=== PATIENT | female | born 1960 | race Caucasian/White ===

== ENCOUNTER 2017-08-12 07:11 | Emergency (ER) | payer BC ==
[~2017-08-12] VITALS: Ht 167.6 cm; Wt 70.0 kg
[2017-08-12] MEDS ORDERED: ondansetron/PF 4mg/2ml inj IV ONE (07:55)
[2017-08-12] MEDS ORDERED: famotidine/PF 10 mg/ml inj IV ONE (07:55)
[2017-08-12] MEDS ORDERED: normal saline 1000ML IV soln IVB ONE (07:55)
[2017-08-12] MEDS ORDERED: morphine 4 MG/ML inj SYRINge IV ONE (07:55)
[2017-08-12 08:11] LABS: BASOPHILS % (AUTO) 0.2 % (0-1); EOSINOPHILS # (AUTO) 0.1 X10'3 (0-0.9); EOSINOPHILS % (AUTO) 1.4 % (0-6); HEMATOCRIT 40.6 % (35.0-45.0); HEMOGLOBIN 14.4 g/dl (12.0-16.0); LYMPHOCYTES # (AUTO) 0.9 X10'3 (1.1-4.8); LYMPHOCYTES % (AUTO) 11.7 % (21-51); MEAN CORPUSCULAR HEMOGLOBIN 33.2 PG (27.0-31.0); MEAN CORPUSCULAR HGB CONC 35.5 % (33.0-36.5); MEAN CORPUSCULAR VOLUME 93.5 FL (78-98); MEAN PLATELET VOLUME 9.6 FL (7.4-10.4); MONOCYTES # (AUTO) 0.5 X10'3 (0-0.9); MONOCYTES % (AUTO) 7.4 % (2-12); NEUTROPHILS # (AUTO) 5.9 X10'3 (1.8-7.7); NEUTROPHILS % (AUTO) 79.3 % (42-75); PLATELET COUNT 159 X10'3 (140-440); RED BLOOD COUNT 4.34 X10'6 (4.20-5.60); RED CELL DISTRIBUTION WIDTH 12.9 % (11.5-14.5); WHITE BLOOD COUNT 7.4 X10'3 (4.5-11.0)
[2017-08-12 08:20] LABS: ALANINE AMINOTRANSFERASE 37 U/L (12-78); ALBUMIN 3.7 G/DL (3.4-5.0); ALBUMIN/GLOBULIN RATIO 1.1 (1.1-1.5); ALKALINE PHOSPHATASE 83 IU/L (46-116); ANION GAP 11 (8-16); ASPARTATE AMINO TRANSFERASE 31 U/L (10-37); BILIRUBIN,TOTAL 0.3 MG/DL (0.1-1.0); BLOOD UREA NITROGEN 18 MG/DL (7-18); BUN/CREATININE RATIO 16.7 (6.6-38.0); CALCIUM 9.6 MG/DL (8.5-10.1); CHLORIDE 105 MMOL/L (99-107); CREATININE 1.08 MG/DL (0.40-0.90); GLUCOSE 128 MG/DL (70-104); LIPASE 330 U/L (73-393); POTASSIUM 4.2 MMOL/L (3.5-5.1); SODIUM 140 MMOL/L (135-145); TOTAL CARBON DIOXIDE 24.2 MMOL/L (24-32); TOTAL PROTEIN 7.2 G/DL (6.4-8.2); eGFR 52 ML/MIN
[2017-08-12 09:03] LABS: CLARITY,URINE TURBID (Clear); COLOR,URINE YELLOW (Yellow); GLUCOSE, URINE NEGATIVE (Neg); KETONES,URINE NEGATIVE (Neg); LEUKOCYTE ESTERASE ,URINE NEGATIVE (Neg); NITRITES, URINE NEGATIVE (Neg); OCCULT BLOOD,URINE NEGATIVE (Neg); PH,URINE 8.5 (4.8-8.0); PROTEIN,URINE TRACE mg/dl (Neg); UROBILINOGEN,URINE 0.2 E.U/dL (0.2-1.0)
[2017-08-12 09:06] LABS: UA COLLECTION TYPE CLN CATCH MIDSTREAM
[2017-08-12 09:17] LABS: AMORPHOUS PHOSPHATES 4+; SQUAMOUS EPITHELIAL CELL,UR FEW /LPF (FEW)
[2017-08-12 09:18] LABS: BACTERIA,URINE NONE SEEN /HPF (Neg); RBC,URINE 0-2 /HPF (0-2); WBC,URINE NONE SEEN /HPF (0-4)
[2017-08-12] MEDS ORDERED: PANT-47 PO (10:09)
[2017-08-12 10:46] VITALS: BP 110/63
== END 2017-08-12 10:48 | disposition home or self-care (01) ==
LOC: ER 07:12
DX: R10.13 Epigastric pain (principal); R11.2 Nausea with vomiting, unspecified; Z98.890 Other specified postprocedural states; Z79.899 Other long term (current) drug therapy
CPT/HCPCS: 36415; 74022; 80053; 81001; 83690; 85025; 93005; 96361; 96374; 96375; 99285; J2270; J2405; J3490; J7030

== ENCOUNTER 2024-07-15 11:47 | Day surgery (SDC) | payer OTHER ==
[2024-07-15] VITALS (13 sets, daily range): BP systolic 117–149; BP diastolic 60–83; PULSE 55–79; RESP 13–17; TEMP 97.3–98.5; O2SAT 95–100
[~2024-07-15] VITALS: Ht 170.2 cm; Wt 66.3 kg
[2024-07-15] MEDS: ceFAZolin 2gm/dext,iso 50mL 50 ML IV ONE (05:30)
[~2024-07-15 11:47] MED LIST: NO HOME MEDS
--- NOTE | 2024-07-15 12:47 | ELECTROCARDIOGRAPH REPORT ---
[facility] Test Date: 2024-07-15 Test Time: 12:43:56 Pat Name: LALY MEZA Department: [facility] Patient ID: [id number] Room: Gender: F Data Compiler: JOSEE : 1960 Requested By: LISBET GREEN Order Number: [id number] Reading MD: Dr. FINA Javier Measurements Intervals [place] Rate: 56 P: 65 MI: 165 QRS: 53 QRSD: 82 T: 27 QT: 431 QTc: 416 Interpretive Statements Sinus bradycardia Electronically Signed On 07-15-2024 17:19:[address] FINA Javier Please click the below link to view image of tracing.
[2024-07-15] MEDS: VANCOMYCIN 1GM 200ML H20 (PEG) 200 ML IV ONE (13:13)
[2024-07-15] MEDS: famotidine 20mg tablet PO ONE (13:14)
[2024-07-15] MEDS: ringers solution, lacted 1,000 ML IV SCH (13:14)
[2024-07-15 13:17] LABS: BASOPHILS % (AUTO) 0.7 % (0-1); EOSINOPHILS # (AUTO) 0.1 X10'3 (0-0.9); EOSINOPHILS % (AUTO) 2.1 % (0-6); MEAN CORPUSCULAR HEMOGLOBIN 31.3 PG (27.0-31.0); MEAN CORPUSCULAR HGB CONC 34.1 g/dL (33.0-36.5); MEAN CORPUSCULAR VOLUME 91.8 FL (78-98); MEAN PLATELET VOLUME 9.1 FL (7.4-10.4); MONOCYTES # (AUTO) 0.5 X10'3 (0-0.9); MONOCYTES % (AUTO) 8.7 % (2-12); NEUTROPHILS # (AUTO) 3.9 X10'3 (1.8-7.7); NEUTROPHILS % (AUTO) 70.5 % (42-75); PRE OP HEMOGLOBIN 15.7 g/dL (12.0-16.0); PRE OP PLATELET COUNT 192 X10'3 (140-440); PRE OP WHITE BLOOD COUNT 5.5 10'3 (4.8-10.8); RED BLOOD COUNT 5.01 X10'6 (4.20-5.60); RED CELL DISTRIBUTION WIDTH 13.2 % (11.5-14.5)
[2024-07-15 13:40] LABS: ALBUMIN 3.9 G/DL (3.4-5.0); ALKALINE PHOSPHATASE 124 IU/L (46-116); BLOOD UREA NITROGEN 17 MG/DL (7-18); BUN/CREATININE RATIO 18.7 (10.0-20.0); CALCIUM 9.3 MG/DL (8.5-10.1); CHLORIDE 103 MMOL/L (99-107); CREATININE 0.91 MG/DL (0.40-0.90); PRE OP ALT 25 U/L (30-65); PRE OP ANION GAP 8 (8-16); PRE OP AST 25 U/L (10-37); PRE OP BILIRUB, TOTAL 0.6 MG/DL (0.0-1.0); PRE OP GLUCOSE 84 MG/DL (70-104); PRE OP POTASSIUM 3.5 MMOL/L (3.4-5.1); PRE OP SODIUM 138 MMOL/L (135-145); TOTAL CARBON DIOXIDE 27.1 MMOL/L (24-32); TOTAL PROTEIN 7.8 G/DL (6.4-8.2); eCRCL 60 ML/MIN; eGFR 62 ML/MIN
[2024-07-15] MEDS ORDERED: fentaNYL/PF 50MCG/1 ML 2ML syringe ONE (17:57)
[2024-07-15] MEDS ORDERED: midazolam 1 mg/ML 2ml injection ONE (17:57)
[2024-07-15] MEDS ORDERED: propofol inj 20 ML IV ONE (18:01)
[2024-07-15] MEDS ORDERED: dexamethasone sod phosphate 4mg/ml inj. ONE (18:17)
[2024-07-15] MEDS ORDERED: ROPIVAcaine 0.5% (5mg/ml) 30ml vial ONE (18:17)
[2024-07-15] MEDS ORDERED: ondansetron/PF 4mg/2ml inj ONE (18:17)
[2024-07-15] MEDS ORDERED: sevoflurane 250ml liquid IH ONE (18:30)
[2024-07-15] MEDS ORDERED: morphine 10mg/ml inj. ONE (18:32)
[2024-07-15] MEDS ORDERED: bacitracin 15gm ointment TP ONE (18:39)
[2024-07-15] MEDS ORDERED: ringers solution, lacted 1,000 ML IV SCH (18:45)
[2024-07-15] MEDS ORDERED: enalaprilat 1.25mg/ml 2ml vial IV PRN (18:45)
[2024-07-15] MEDS ORDERED: meperidine/PF 25mg/ml syringe IV PRN ×3 (18:45)
[2024-07-15] MEDS ORDERED: ondansetron/PF 4mg/2ml inj IV PRN ×2 (18:45→20:35)
[2024-07-15] MEDS ORDERED: proCHLORperazine 10 MG/2 ml inj IV PRN (18:45)
[2024-07-15] MEDS ORDERED: morphine 2 MG/ML inj. syringe IV PRN (18:45)
[2024-07-15] MEDS ORDERED: labetalol 20mg/4ml (5mg/ml) syringe IV PRN (18:45)
--- NOTE | 2024-07-15 18:47 | ANESTHESIA RECORDS ---
Nerve Block Providers to CC ~ Diagnosis: Nerve Block requested by: LISBET GREEN MD Neuraxial/Peripheral Nerve Block requested for Post-operative analgesia by Physician above DIAGNOSIS: Post-operative pain. (Body Area) Shoulder: [ ] Arm: [ ] Hand: [ ] Hip: [ ] Knee: [ ] Ankle: [ ] Foot: [ ] Leg: [ ] Abdomen: [ ] Other: [ ] Post-operative pain expected to be/is inadequately managed by oral or IV medicines. Regional anesthetic expected to facilitate rehabilitation and/or discharge from facility. Other:[ ] Procedure Performed: Femoral / Saphenous: Left Time out Done?: Yes Time of Time out: 18:05 Procedure Details: PROCEDURE DETAILS: Risks, benefits and alternatives explained Informed consent obtained, and patient wishes to proceed Conscious sedation with indicated monitors Patient positioned, pertinent anatomy defined, sterile technique used Needle used: [ ] 3 1/8 inch Stimuplex Ultra 22ga [x ] 4 inch Stimuplex Ultra 20ga [ ] 6 inch Stimuplex Ultra 20ga [ ] 6 inch, Quikbloc over the needle catheter set 20ga [ ] 4 inch Quikbloc over the needle catheter set 20ga [ ]Other: [ ] Loss of twitch @ [___0.4 ]mA [ x] Single Injection [ ] Catheter Ultrasound Guidance Used: [x ] Yes [ ] No Attempts:[ once ] Medicines injected: [ ]Clonidine Amt:[ ] [x ]Dexamethasone Amt:[__3 mgs ] [x ]Ropivacaine Amt:[ 0.5% 25 cc ] [ ]Bupivacaine Amt:[ ] [ ]Lidocaine Amt:[ ] [ ]Exparel 1.33%:[ ] [ ]Epinephrine Amt[ ] [ ]Other: [ ] Intermittent aspiration during local anesthetic administration No symptoms of intraneural or intravenous injection Patient tolerated procedure well Comments Left Femoral nerve block: . Pt supine. Easy visualization of the Femoral nerve and Femoral vessels with ultrasound probe below the groin. Needle entered from lateral approach. 1% xylocaine local anesthetic. Patellear twitch noted. twitch disappeared at 04 mv. No Pain or discomfort during injection. NAI MONTOYA MD July 15, 2024 18:47
[2024-07-15] MEDS ORDERED: bisacodyl 10mg suppository rectal RC PRN (20:35)
[2024-07-15] MEDS ORDERED: PCA WASTE DOCUMENTATION 1 MG ML MC SCH (20:35)
[2024-07-15] MEDS ORDERED: HYDROmorphone 1 mg/ml syringe IV PRN (20:35)
[2024-07-15] MEDS ORDERED: diphenhydrAMINE 25mg capsule PO PRN ×2 (20:35)
[2024-07-15] MEDS ORDERED: naloxone 0.4 mg/ml inj IV PRN (20:35)
[2024-07-15] MEDS ORDERED: magnesium hydroxide 30ml (MOM) UD suspension PO PRN (20:35)
[2024-07-15] MEDS ORDERED: acetaminophen 325mg tablet PO PRN (20:35)
[2024-07-15] MEDS ORDERED: HYDROmorphone inj. 0.5 MG/0.5 ML DISP.SYRIN IV PRN (20:35)
[2024-07-15] MEDS ORDERED: oxyCODONE IR 5mg (immed. release) tablet PO PRN ×2 (20:35)
--- NOTE | 2024-07-15 20:45 | OPERATIVE REPORT ---
Operative Report Providers to ~ Date of Procedure: July 15, 2024 Pre-Operative Diagnosis: Patella fracture left knee closed Post-Operative Diagnosis SAME as PRE-Op Procedure Performed Partial patellectomy repair of extensor mechanism Surgeon: Lisbet Green MD Guide Domestic Tour One Anesthesiologist: Cameron South Type of Anesthesia: General, Other (Femoral nerve block adductor canal block) Findings: Patient was found to have a less than 1/3 patellar fracture involving the inferior pole of the patella. This was comminuted 2nd requiring partial patellectomy of this inferior portion Complications None Estimated Blood Loss: 100 cc Specimen Removed: Inferior 20% of the patella inferior pole Description of Procedure: This patient was taken to the operating room to attempted potential open repair of a patella fracture that was approximately 6-week-old. Patient was informed of the indications risks benefits limitations and potential complications of the surgery. The attempt is to be able to stabilize this fracture and preserve as much articular cartilage as possible and joint surfaces as possible. I obtained informed consent. I signed her extremity. She was given prophylactic antibiotics per protocol. Taken to the operating room and given a general anesthetic as well as a femoral nerve block and adductor canal block for postoperative pain management her right leg was placed in an SCD with the left leg was placed in a well-padded operative thigh tourniquet surgical time-out was taken protocol and the case was begun Esmarch was used for exsanguination of the leg of the prepped and draped in usual sterile orthopaedic fashion Esmarch was used. Tourniquet was insufflated anterior incision was made from the inferior pole of the patella the of the superior pole of the patella and then extending to the tibial tubercle and into the quadricep tendon proximal this is a anterior vertical incision. Dissection was then carried medial and lateral the expose the fracture site. Extensive debridement was required to expose the fracture fragments. The inferior pole which was less than 1/3 of the patella was surface area was comminuted and had displaced and had disrupted its anterior cortical margin. With a loss of cortical integrity a repair was not feasible therefore a partial patellectomy this begun. I retained the portion of the inferior pole of the patella was attached to the to the patellar tendon for suture repair to the superior 2/3 of the patella. I used FiberTape in a [id number] fashion to achieved with the apparent supported by interrupted sutures of FiberTape both medial and lateral to achieve an anatomic repair and judaism of the extensor mechanism 0 Vicryl was also used to supplement this. X-rays confirmed acceptable alignment of the patella postoperatively. The knee was stable otherwise. Subcuticular skin was closed with 2-0 Vicryl. Skin was closed with skin monica. No drains were acquired. Antibiotic ointment was applied to the incision sterile 4x4s held in position with a Kerlix and Ankit wrap and then the knee was placed in a knee immobilizer to protect the repair tourniquet had been released chest 2 hours with good distal pulses and capillary refill returned to the foot. Patient was now extubated and taken to recovery room in stable condition there were no apparent perioperative complications Counts repoted as correct: Yes LISBET GREEN MD July 15, 2024 20:45
[2024-07-15] MEDS: morphine 4 MG/ML inj SYRINge IV PRN (20:55)
[2024-07-15] MEDS: ceFAZolin/D5W- 1GM premix 50 ML IV SCH (23:34)
[2024-07-15] MEDS: sennosides 8.6mg tablet PO SCH (23:42)
[2024-07-16 00:18] VITALS: BP 104/56; PULSE 71; RESP 16; TEMP 97.8; O2SAT 97
[2024-07-16 01:18] VITALS: BP 112/61; PULSE 67; RESP 16; TEMP 97.8; O2SAT 99
[2024-07-16 02:00] VITALS: BP 105/57; PULSE 62; RESP 13; TEMP 97.6; O2SAT 98
[2024-07-16] MEDS: potassium Cl 20mEq in NS 1,000 ML IV SCH (03:39)
[2024-07-16] MEDS: acetaminophen 325mg tablet PO SCH (04:00)
[2024-07-16 06:00] VITALS: BP 118/61; PULSE 66; RESP 14; TEMP 98.6; O2SAT 99
[2024-07-16 08:00] VITALS: RESP 16
== END 2024-07-16 12:50 | disposition home or self-care (01) ==
LOC: OR 11:47 → ORTHO 4S 20:46 → OR 07-16 12:50
PROVIDERS: ATTEND Orthopaedic Surgery
DX: S82.042A Displaced comminuted fracture of left patella, initial encounter for closed fracture (principal); E03.9 Hypothyroidism, unspecified; X58.XXXA Exposure to other specified factors, initial encounter; Y93.89 Activity, other specified; Y92.89 Other specified places as the place of occurrence of the external cause; Y99.8 Other external cause status; Z79.899 Other long term (current) drug therapy; Z90.49 Acquired absence of other specified parts of digestive tract; Z98.890 Other specified postprocedural states; Z87.442 Personal history of urinary calculi; Z88.8 Allergy status to other drugs, medicaments and biological substances; G89.18 Other acute postprocedural pain
CPT/HCPCS: 27524; 36415; 64447; 80053; 85025; 87081; 93005; 97116; 97162; 97530; C1713; J0690; J1100; J2250; J2270; J2274; J2405; J2704; J2795; J3010; J3372; J3480; J7030; J7120; Z7506; Z7508; Z7512; A4215; A4615; A4618; A6212; A6449; A7000; G0378

== ENCOUNTER 2024-12-09 07:25 | Inpatient (IN) | payer OTHER ==
[2024-12-09] VITALS (26 sets, daily range): BP systolic 97–129; BP diastolic 50–77; PULSE 47–66; RESP 11–21; TEMP 97.4–98.5; O2SAT 96–100
[~2024-12-09] VITALS: Ht 170.2 cm; Wt 68.4 kg
[2024-12-09] MEDS: ceFAZolin 2gm/dext,iso 50mL 50 ML IV ONE (05:30)
[~2024-12-09 07:25] MED LIST changes: +BUPIVAcaine/PF 2.5mg/ml (0.25%) 10ml vial ONE; +bacitracin 15gm ointment TP ONE
[2024-12-09] MEDS: ringers solution, lacted 1,000 ML IV SCH ×2 (07:57→12:50)
[2024-12-09] MEDS ORDERED: fentaNYL/PF 50MCG/1 ML 2ML syringe ONE (11:02)
[2024-12-09] MEDS ORDERED: ROPIVAcaine 0.5% (5mg/ml) 30ml vial ONE (11:37)
[2024-12-09] MEDS ORDERED: propofol inj 20 ML IV ONE ×2 (11:37)
[2024-12-09] MEDS ORDERED: ondansetron/PF 4mg/2ml inj ONE (11:44)
[2024-12-09] MEDS ORDERED: ondansetron/PF 4mg/2ml inj IV PRN ×2 (12:50→14:45)
[2024-12-09] MEDS ORDERED: fentaNYL/PF 50MCG/1 ML 2ML syringe IV PRN ×2 (12:50)
[2024-12-09] MEDS ORDERED: HYDROmorphone/PF 0.2 MG/ML SYRINGE IV PRN ×2 (12:50)
[2024-12-09] MEDS ORDERED: labetalol 20mg/4ml (5mg/ml) syringe IV PRN (12:50)
[2024-12-09] MEDS ORDERED: acetaminophen 1,000mg/100ml IV 100 ML IV PRN (12:50)
[2024-12-09] MEDS ORDERED: hydrALAZINE 20mg/ml inj. IV PRN (12:50)
--- NOTE | 2024-12-09 13:00 | OPERATIVE REPORT ---
Operative Report Providers to CC ~ Date of Procedure: Dec 09, 2024 Pre-Operative Diagnosis: Hematoma left knee status post extensive lysis of the adhesions Post-Operative Diagnosis SAME as PRE-Op Procedure Performed Evacuation of hematoma placement of the wound VAC placed into of the pedal negative pressure dressing closure of the wound. Surgeon: Lisbet Green MD Pin Feather Machine Operator None Anesthesiologist: Quentin Gomez Type of Anesthesia: General, Other (Adductor canal block) Findings: Patient was found to have a significant hematoma which was putting additional pressure on the previous closure with some early wound dehiscence inferiorly Complications None Prosthetics\Implants used: Medium-size Hemovac drain was placed Estimated Blood Loss: Proximally 150 mL Specimen Removed: Hematoma proximally 100 cc Description of Procedure: Patient was taken to the operating room on an urgent basis with seems developing a persistent hematoma that was failing to resolve she was developing early wound dehiscence inferiorly on her anterior knee incision. Patient agreed to proceed with surgery which would be evacuation of the hematoma exploration of the possible primary closure. I obtained informed consent she was given prophylactic intravenous antibiotics per protocol taken to the operating room and given a general anesthetic as well as an adductor canal block for postoperative pain management the leg was prepped and draped with Betadine frankie ution using sterile technique surgical time-out was taken per protocol and the case was begun tourniquet was placed but not used. Inferior 3rd of the incision was proximally 4 in was released from the tissue as it was showing evidence of the hematoma and early wound dehiscence which had progressed from three days prior. Once this was opened in the hematoma was evacuated in his area by I recognize the hematoma was present in the supra patellar space and subcuticular. And other 25% of the incision sutures were released to aid in further evacuation of the hematoma which was primarily subcuticular Pulsatile irrigation was used as well as digital manipulation to evacuate the wound no active bleeding was encountered a medium-size Hemovac drain was placed exited out proximally and anterior medially. Skin closure was accomplished with 1. Prolene in a simple tension band technique as the skin edges were slightly dusky and in his concern for potential compromise vascularity tendon inches. I was able to achieve without tension closure of the wound. The fecal dressing was applied to encourage closure and this was supported with a 6 in Ankit wrap the Hemovac drain was also open to minimize development of further hematoma. Good capillary refill and good distal pulses were maintained throughout the case. Patient was placed in a knee immobilizer to protect the wrist incision and dressings. Intraoperative cultures were taken prior to any evacuation of the hematoma. There was no evidence of purulence or necrotic tissue. The patient was now extubated and taken to the recovery room in stable condition there were no apparent perioperative complications needle and sponge count was reported to be intact Counts repoted as correct: Yes LISBET GREEN MD Dec 09, 2024 13:00
[2024-12-09] MEDS ORDERED: HYDROcodone/acetaminophen 10/325mg tab PO PRN ×2 (14:45)
[2024-12-09] MEDS: ceFAZolin 1GM/D5W- ADD-VANTAGE 50 ML IV SCH (17:27)
[2024-12-09] MEDS: normal saline 1000ml 1,000 ML IV SCH (23:39)
[2024-12-10 02:06] VITALS: BP 106/55; PULSE 61; RESP 14; TEMP 97.7; O2SAT 98
[2024-12-10 06:00] VITALS: BP 95/51; PULSE 69; RESP 14; TEMP 98.6; O2SAT 99
[2024-12-10 10:00] VITALS: BP 95/52; PULSE 67; RESP 16; TEMP 97.4; O2SAT 99
[2024-12-10 12:24] LABS: MEAN PLATELET VOLUME 8.8 FL (7.4-10.4); RED CELL DISTRIBUTION WIDTH 14.8 % (11.5-14.5)
[2024-12-10 12:45] LABS: APTT 25 SECONDS (22-32); INR 1.0 INR
[2024-12-10 13:03] LABS: CHOL/HDL RATIO 4.7 (0.00-4.99); CREATININE 0.81 MG/DL (0.40-0.90); LDL CHOLESTEROL 134 MG/DL (50-100); TOTAL CARBON DIOXIDE 26.9 MMOL/L (24-32); eCRCL 66 ML/MIN; eGFR 71 ML/MIN
[2024-12-10 14:47] LABS: LEUKOCYTE ESTERASE ,URINE NEGATIVE (Neg); NITRITES, URINE NEGATIVE (Neg); OCCULT BLOOD,URINE NEGATIVE (Neg)
[2024-12-10 14:50] LABS: UA COLLECTION TYPE NON-SPECIFIED
[2024-12-10] MEDS: ceFAZolin/D5W- 1GM premix 50 ML IV SCH (15:27)
[2024-12-10] MEDS: JUVEN Smoothie Arginine/Glut./Ca2+Bmb (Juven 19.3pkt) 240ml cup PO SCH (17:30)
--- NOTE | 2024-12-10 18:47 | CONSULTATION REPORT - RESIDENT ---
Consult Providers to CC Resident Creating Document: JAXSON ALICEA RES History of Present Illness Reason for Admit\Complaint: Med consultation after Left knee surgery History of Present Illness A 64 years old previously healthy female with past medical history of rosacea, s/p cholecystectomy, s/p left patellar fracture s/p post surgery adhesiolysis surgery who recently underwent evacuation of hematoma surgery by Dr Conklin on 12/10/24 was requested for the medical consultation during hospitalization. Patient usually goes to Dr Plascencia for her PCP care. She described herself as a healthy and active for her age with the healthy lifestyle and diet. She stated that she has had the left patellar fracture on Jun, 2024 which was repaired, and complicated with the adhesions that needed for the adhesiolysis surgery on last November 17, 2024. She has developed the swelling which were bleeding over her left knee since 5-7 days ago, which she attributed for has been doing the extensive knee banding exercises with the machine lately. She denied for any personal and family bleeding dyscrasia history. She is not currently taking any blood thinners at that moment. She denied for any pain and inflammation symptoms over her left knee along with the fever with chills and rigors. She underwent the evacuation of hematoma surgery by Dr Conklin today without having any complications. she was put on the IV Cefazolin and Dr Conklin requested for the medical consultation for her wound with the concern of the infectious contamination along with the continuous wound care. Allergies: Coded Allergies: vancomycin (Verified Allergy, Intermediate, ITCHY WITH HEADACHE, 12/08/24) Home Medications Home Medications Active Reported No Home Medications (Home Med List) Each Past Medical History Past Medical History rosacea for which she was treated with the antibiotic topical application under the Senior Cyber Security Analyst treatment Past Surgical History Surgical History Comment s/p cholecystectomy, s/p left patellar fracture s/p post surgery adhesiolysis surgery Family History Family History: Patient reports no known family medical history. Past Social History Social History Comment She is currently living with her who needs her help for the medical condition assistance at home. ROS ROS Constitutional: No fever, chills, dizziness, weakness, weight gain or loss Eyes: No pain, erythema, discharge, blurring of vision ENT: No sore throat, epistaxis, tinnitus Cardiovascular: No chest pain, chest pressure, chest discomfort, palpitations, syncope, lower extremity edema, paroxysmal nocturnal dyspnea Respiratory: No shortness of breath, cough, hemoptysis Gastrointestinal: Normal appetite. No nausea, vomiting, diarrhea, constipation, hematemesis, abdominal pain, bloating, melena or fresh blood Genitourinary: No frequency, urgency, nocturia, hematuria or dysuria Musculoskeletal: No arthralgias or myalgias Integumentary: No change in skin, hair, nails. No swelling, bruising, abrasions Neurologic: No headache, neck pain, numbness or tingling of the extremities, weakness Psychiatric: No delusions, depression, loss of interest in normal activity or change in sleep pattern, hallucinations, suicidal ideations Endocrine: No fatigue, weakness, polydipsia, polyuria, change in appetite, heat or cold intolerance, sweating, dry skin Hematological: No bleeding, petechiae, bruising Allergies: No asthma or urticaria Exam Vitals: Vital Signs Date Time Temp Pulse Resp B/P (MAP) Pulse Ox O2 Delivery O2 Flow Rate FiO2 12/10/24 10:00 97.4 67 16 95/52 (66) 99 Room Air 12/10/24 08:00 0.0 General: General: Well alert, well oriented, not confused, not agitated, not in acute distress, well cooperated during the physical. HEENT: HEENT: Conjunctive are pink, sclerae clear, no icterus, pupil is equal in both sides, reactive to light, no ear discharge, no pharyngeal erythema or an edema, mouth and lips are moist. Neck: Neck: Supple, no JVD, no lymphadenopathy and thyromegaly. Chest: Lungs:Equal air entry on both lungs, no additional sounds Cardiovascular: Heart: S1-S2 regular sinus rhythm and, regular rate, no gallops, no rubs, no murmurs Abdomen: Abdomen: No visible peristalsis, Bowel sounds present on auscultation, soft, nontender, no guarding, no rigidity Extremities: Extremities: the left knee was secured well with the bandage and stabilized wear with the negative pressure vacum wound dressing. No obvious deformities, no pitting edema bilaterally, capillary refill intact, able to wiggle toes both sides, peripheral pulsations are intact on both sides, no motor weakness Central Nervous System: DRAGLINE MECHANIC: No focal neurological deficits, no motor and sensory weakness in all 4 extremities, could move all 4 extremities Musculoskeletal: Musculoskeletal: No joint swelling, deformities, inflammations, and no scoliosis and back tenderness Skin: Skin: No active skin lesions and rashes Diagnostic Data Last Recorded Lab Results: 12/10/24 1159 12/10/24 1159 Diagnostic Data: Laboratory Tests Test 12/10/24 11:59 Prothrombin Time 10.3 SECONDS (9.0-12.0) INR International Normalized Ratio 1.0 INR Activated Partial Thromboplast Time 25 SECONDS (22-32) Coagulation Comments Additional Plan A 64 years old previously healthy female with past medical history of rosacea, s/p cholecystectomy, s/p left patellar fracture s/p post surgery adhesiolysis surgery who recently underwent evacuation of hematoma surgery by Dr Conklin on 12/10/24 was requested for the medical consultation during hospitalization. Patient usually goes to Dr Plascencia for her PCP care. # S/p evacuation of left knee hematoma, placement of the wound VAC # Hx of Left knee patellar fracture and repaired with surgery # Hx of left knee adhesiolysis surgery -Given history of immediate post op with no significant PMH, we will follow the patient to manage medically during her hospitalization along with the orthopedic surgical team. -He was given the IV Cefazolin and we will continue Q8Hrs, and will adjust antibiotics according to antibiotic g from the wound culture and sensitivity -continue pain control with [place] as prescribed as needed -wound care/consultation was requested, appreciate it. -follow up with wound culture and sensitivity -continue multivitamin, vitamin-C, and Albert to enhance wound healing # dimorphic/hyperchromic normocytic anemia -monitor CBC daily -monitor post surgical site over the left knee for any blood loss -anemic features could possibly from the estimated blood loss during the bony surgery -order vitamin B12 labs to follow up -normal coagulation profile # apparent serum hypocalcemia # mild protein energy malnutrition -calculated corrected calcium showed nine which is within normal, apparently low because of the mild protein energy malnutrition -negative protein in UA -continue Albert and encourage protein diet # hypercholesterolemia # Possible Overt hypothyroidism Vs subclinical hypothyroidism from the nonspecific elevation of TSH -LDL 134, will put the patient on possible statin medications after discussed risks and benefits of it and heart healthy lifestyle modifications -TSH 10.88 could be because of the recent acute stress reaction from the surgery Vs Overt hypothyroidism but the pt does not show any active clinical hypothyroidism features at the moment. -Ordered Free T4 and follow up to initiate the thyroid hormone replacement therapy CODE STATUS: Full code DVT prophylaxis: As per orthopedic Surgery team's plan, SCDs until fully ambulatory Analgesia/sedation: [place] as needed Lines/tubes: PIV GI prophylaxis: None Nutrition: Regular with protein enriched Prognosis: Guarded Disposition: Continue medical management including IV antibiotics and track antibiogram, pain control, postop complication prevention, DVT prophylaxis, PT eval and DC plan. Resident MD attestation: Patient was seen, examined and discussed with attending , Dr. Nicolas ALICEA MD Internal Medicine Resident, PGY3 [facility] Date of Service: Dec 10, 2024 Billing Provider: BERTA SPANN MD, TIN, RES Dec 10, 2024 18:47
[2024-12-10 19:08] VITALS: BP 116/58; PULSE 67; RESP 17; TEMP 97.7; O2SAT 98
[2024-12-10 22:00] VITALS: BP 105/52; PULSE 67; RESP 17; TEMP 97.6; O2SAT 96
[2024-12-11 06:00] VITALS: BP 122/72; PULSE 63; RESP 18; TEMP 97.8; O2SAT 98
[2024-12-11] MEDS: levoTHYROXINE 75mcg tablet PO ONE (07:50)
[2024-12-11 07:57] LABS: MEAN PLATELET VOLUME 9.3 FL (7.4-10.4); RED CELL DISTRIBUTION WIDTH 14.7 % (11.5-14.5)
[2024-12-11] MEDS: MULTIVIT-MIN/FERROUS GLUCONATE 9 MG/15 ML LIQUID PO SCH (08:00)
[2024-12-11 08:12] LABS: CREATININE 0.90 MG/DL (0.40-0.90); TOTAL CARBON DIOXIDE 27.6 MMOL/L (24-32); eCRCL 60 ML/MIN; eGFR 63 ML/MIN
[2024-12-11 10:00] VITALS: BP 118/69; PULSE 66; RESP 16; TEMP 98.1; O2SAT 98
--- NOTE | 2024-12-11 12:53 | PROGRESS NOTE- Residence ---
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 She was educated and discussed in details about the consequences of the untreated hypothyroidism, including elevated LDL, higher risk of CVA, and ACS in the future. She has an insight of having those consequences and having some features of hypothyrodism with sinus bradycardia, not motivated and depressed symptoms etc. She denied to take the Multivitamins and Vitamin C for enhancing the wound healing. Meanwhile, she needs to take her natural meds of Mg thio and Mg glycinate during hospitalization. Objective Vital Signs Date Time Temp Pulse Resp B/P (MAP) Pulse Ox O2 Delivery O2 Flow Rate FiO2 12/11/24 10:00 98.1 66 16 118/69 (85) 98 12/11/24 06:00 Room Air 12/10/24 20:00 0.0 Result Diagram: 12/11/24 0553 12/11/24 0553 Vitals were stable at the moment with temp 98.1 F, OK 66/minute, RR 16/minute, BP 118/69 mm Hg, pulse oximetry 98% on room air. On examination, General: Well alert, well oriented, not confused, not agitated, not in acute distress, well cooperated during the physical. HEENT: Conjunctive are pink, sclerae clear, no icterus, pupil is equal in both sides, reactive to light, no ear discharge, no pharyngeal erythema or an edema, mouth and lips are moist. Neck: Supple, no JVD, no lymphadenopathy and thyromegaly. Lungs:Equal air entry on both lungs, no additional sounds Heart: S1-S2 regular sinus rhythm and, regular rate, no gallops, no rubs, no murmurs Abdomen: No visible peristalsis, Bowel sounds present on auscultation, soft, nontender, no guarding, no rigidity Extremities: the left knee was secured well with the bandage and stabilized wear with the negative pressure vacum wound dressing. No obvious deformities, no pitting edema bilaterally, capillary refill intact, able to wiggle toes both sides, peripheral pulsations are intact on both sides, no motor weakness PHARMACY CUSTOMER CARE SPECIALIST: No focal neurological deficits, no motor and sensory weakness in all 4 extremities, could move all 4 extremities Musculoskeletal: No joint swelling, deformities, inflammations, and no scoliosis and back tenderness Skin: No active skin lesions and rashes Coagulation Studies Laboratory Tests Test 12/10/24 11:59 Prothrombin Time 10.3 SECONDS (9.0-12.0) INR International Normalized Ratio 1.0 INR Activated Partial Thromboplast Time 25 SECONDS (22-32) Coagulation Comments Assessment Assessment A 64 years old previously healthy female with past medical history of rosacea, s/p cholecystectomy, s/p left patellar fracture s/p post surgery adhesiolysis surgery who recently underwent evacuation of hematoma surgery by Dr Conklin on 12/10/24 was requested for the medical consultation during hospitalization. Patient usually goes to Dr Plascencia for her PCP care. Plan Plan # S/p evacuation of post operative left knee hematoma, and wound dehiscence repair, and placement of the wound VAC # Hx of Left knee patellar fracture and repaired with surgery # Hx of left knee adhesiolysis surgery -Given history of immediate post op with no significant PMH, we will follow the patient to manage medically during her hospitalization along with the orthopedic surgical team. -continue IV Cefazolin Q8Hrs - Day 2, and will adjust antibiotics according to antibiogram from the wound culture and sensitivity -Normal white counts, ESR and procalcitonin at that moment. -Requested Dr Alonso ID for Prelim report of wound culture showed G(-0ve rods and G(+) Cocci, and appreciate it -continue pain control with [place] as prescribed as needed -wound care/consultation was requested, appreciate it. -follow up with wound culture and sensitivity -continue Albert, however, she refused to take multivitamin, vitamin-C even after explained the reason of enhancing wound healing -Dr Conklin dose not encourage to start PT until he starts recommending it. # dimorphic/hyperchromic normocytic anemia -monitor CBC daily, Hb slightly trending down -monitor post surgical site over the left knee for any blood loss -anemic features could possibly from the estimated blood loss during the bony surgery -order vitamin B12 is pending -normal coagulation profile # apparent serum hypocalcemia # mild protein energy malnutrition -calculated corrected calcium showed normal, apparently low because of the mild protein energy malnutrition -negative protein in UA -continue Albert and encourage protein diet # hypercholesterolemia # Overt hypothyroidism with Rinku Thyroiditis -Given history of previously diagnosed with Rinku thyroiditis and stopped taking thyroid armor since last 2 years, currently Overt Hypothyroidism with TSH >10 and T4 <0.3 what was prescribed with Levothyroxine 75mcg, however, pt refused to take ones. She was educated and discussed in details about the consequences of the untreated hypothyroidism, including elevated LDL, higher risk of CVA, and ACS in the future. She has an insight of having those consequences and having some features of hypothyrodism with sinus bradycardia, not motivated and depressed symptoms etc. -Also recommended to follow up with PCP and Telephone Instrument Supervisor to recheck TSH and Free T4 in 6 weeks for further management. -LDL 134, she also refused to take statin medications even after discussed risks and benefits of it, and would only like to proceed with the heart healthy lifestyle modifications CODE STATUS: Full code DVT prophylaxis: As per orthopedic Surgery team's plan, SCDs until fully ambulatory Analgesia/sedation: [place] as needed Lines/tubes: PIV GI prophylaxis: None Nutrition: Regular with protein enriched Prognosis: Guarded Disposition: Continue medical management including IV antibiotics and track antibiogram, pain control, postop complication prevention, DVT prophylaxis, Dr Rubin dose not encourage to start PT until he starts recommending it, and DC plan. Resident attestation: Patient was seen, examined and discussed with attending Dr. Nicolas MOORE MD Internal Medicine Resident, PGY3 [facility] Date of Service: Dec 11, 2024 Billing Provider: BERTA SPANN MD, TIN, RES Dec 11, 2024 12:52
[2024-12-11 18:00] VITALS: BP 121/67; PULSE 61; RESP 16; TEMP 98; O2SAT 97
[2024-12-11 22:00] VITALS: BP 111/57; PULSE 61; RESP 17; TEMP 97.8; O2SAT 97
[2024-12-12 06:00] VITALS: BP 130/69; PULSE 57; RESP 16; TEMP 97.7; O2SAT 95
[2024-12-12 06:13] LABS: MEAN PLATELET VOLUME 8.9 FL (7.4-10.4); RED CELL DISTRIBUTION WIDTH 14.8 % (11.5-14.5)
[2024-12-12 06:31] LABS: CREATININE 0.85 MG/DL (0.40-0.90); TOTAL CARBON DIOXIDE 26.1 MMOL/L (24-32); eCRCL 63 ML/MIN; eGFR 67 ML/MIN
[2024-12-12] MEDS: levoTHYROXINE 75mcg tablet PO SCH (07:00)
[2024-12-12 10:00] VITALS: BP 125/72; PULSE 63; RESP 15; TEMP 97.9; O2SAT 98
[2024-12-12 18:00] VITALS: BP 142/82; PULSE 58; RESP 18; TEMP 97.9; O2SAT 98
--- NOTE | 2024-12-12 18:50 | PROGRESS NOTE- Residence ---
Progress Note - Resident Providers to CC Resident Creating Document: JOVANNA BO RES ~ Antibiotic Timeout Antibiotic Ordered?: Yes Subjective Patient was seen and examined at bedside, she claims she has a an appointment in December with Dr. Galarza. She would like to follow up with him regarding further management of her overt hypothyroidism. Otherwise she is asymptomatic and does not complain of any overnight symptoms. Objective Vital Signs Date Time Temp Pulse Resp B/P (MAP) Pulse Ox O2 Delivery O2 Flow Rate FiO2 12/12/24 10:00 97.9 63 15 125/72 (89) 98 Room Air 12/12/24 08:00 0.0 Result Diagram: 12/12/24 0540 12/12/24 0540 General: Well alert, well oriented, not confused, not agitated, not in acute distress, well cooperated during the physical. HEENT: Conjunctive are pink, sclerae clear, no icterus, pupil is equal in both sides, reactive to light, no ear discharge, no pharyngeal erythema or an edema, mouth and lips are moist. Neck: Supple, no JVD, no lymphadenopathy and thyromegaly. Lungs:Equal air entry on both lungs, no additional sounds Heart: S1-S2 regular sinus rhythm and, regular rate, no gallops, no rubs, no murmurs Abdomen: No visible peristalsis, Bowel sounds present on auscultation, soft, nontender, no guarding, no rigidity Extremities: the left knee was secured well with the bandage and stabilized wear with the negative pressure vacum wound dressing. No obvious deformities, no pitting edema bilaterally, capillary refill intact, able to wiggle toes both sides, peripheral pulsations are intact on both sides, no motor weakness PATENT SOLICITOR: No focal neurological deficits, no motor and sensory weakness in all 4 extremities, could move all 4 extremities Musculoskeletal: No joint swelling, deformities, inflammations, and no scoliosis and back tenderness Skin: No active skin lesions and rashes Coagulation Studies Laboratory Tests Test 12/10/24 11:59 Prothrombin Time 10.3 SECONDS (9.0-12.0) INR International Normalized Ratio 1.0 INR Activated Partial Thromboplast Time 25 SECONDS (22-32) Coagulation Comments Advance Care Planning Advanced Care plannin - 30 Minutes Assessment Assessment A 64 years old previously healthy female with past medical history of rosacea, s/p cholecystectomy, s/p left patellar fracture s/p post surgery adhesiolysis surgery who recently underwent evacuation of hematoma surgery by Dr Conklin on 12/10/24 was requested for the medical consultation during hospitalization. Patient usually goes to Dr Plascencia for her PCP care. Plan Plan S/P Evacuation of Postoperative Left Knee Hematoma and Wound Dehiscence Repair with Wound VAC Placement History of left knee patellar fracture (previously surgically repaired). History of left knee adhesiolysis surgery Wound cultures positive for Acinetobacter baumannii, bacillus species We will continue to follow the patient for medical management in coordination with the orthopedic surgery team Antibiotics: Dr. Alonso was consulted today, recommended levofloxacin 500 mg p.o. daily Preliminary wound culture: Wound cultures positive for Acinetobacter baumannii and bacillus species Labs: WBC, ESR, and procalcitonin currently within normal limits. Pain control: Continue [place] as prescribed, PRN. Wound care: Wound care consultation obtained and appreciated. Continue wound VAC management as per recommendations PT: To start only after orthopedic clearance (per Dr. Conklin) Dimorphic/Hyperchromic Normocytic Anemia Monitor CBC daily; hemoglobin slightly trending down. Likely secondary to perioperative/estimated blood loss. Monitor surgical site for active bleeding. Coagulation profile normal Apparent Hypocalcemia / Mild Protein-Energy Malnutrition Corrected calcium within normal range; low total calcium likely due to low serum protein. Urinalysis negative for protein. Continue Albert and encourage high-protein diet. Hypercholesterolemia LDL 134 mg/dL. Patient declined statin therapy after discussion of risks and benefits Will continue with heart-healthy diet and lifestyle modification Overt Hypothyroidism (Rinku Thyroiditis) Known history of Rinku thyroiditis. Off thyroid medication ([place] Thyroid) for ~2 years. Current labs: TSH >10, Free T4 <0.3 consistent with overt hypothyroidism. Levothyroxine 75 mcg daily was prescribed, but patient refused after counseling. Discussed risks of untreated hypothyroidism, including hyperlipidemia, bradycardia, depression, and increased cardiovascular/cerebrovascular risk. Advised close follow-up with PCP and Legal Process Specialist; repeat TSH and Free T4 in 6 weeks Code Status: Full Code DVT Prophylaxis: SCDs per orthopedic team until fully ambulatory Analgesia: [place] PRN GI Prophylaxis: None Lines/Tubes: Peripheral IV Nutrition: Regular diet, protein-enriched Prognosis: Guarded Jovanna Bo MD Internal Medicine Resident, PGY-2 Date of Service: Dec 12, 2024 Billing Provider: BERTA SPANN MD,JOVANNA RES Dec 12, 2024 18:50
[2024-12-12 20:00] VITALS: RESP 18; O2SAT 96
[2024-12-12 22:00] VITALS: BP 99/57; PULSE 56; RESP 16; TEMP 97.6; O2SAT 96
--- NOTE | 2024-12-13 03:03 | CONSULTATION ---
DATE OF CONSULTATION: 12/12/2024 DICTATING PHYSICIAN: Geovany Alonso MD REASON FOR CONSULTATION: I am seeing the patient at the request of Dr. Valenzuela for evaluation of a left knee infection following recent surgery. HISTORY OF PRESENT ILLNESS: The patient is a 64-year-old female who originally underwent surgery with Dr. Rubin nunez in late June. She had fractured her patella and she required partial patellectomy with repair of extensor mechanism. It sounds as if she went on to develop significant adhesions at that joint. She had a second surgical procedure that took place at [facility] within the past month. I believe this was mainly lysis of adhesions. Unfortunately, she went on to develop a hematoma. She was brought into this facility for evacuation of that hematoma on 12/09/2024. Culture was taken at that time, although there was no evidence of purulence or necrotic tissue. She is now stable in the postoperative setting. She does have a drain in place and her left knee remains wrapped. She had been taking cephalexin prior to this hospitalization. She is currently receiving cefazolin. PAST MEDICAL HISTORY: Rosacea. Left patella fracture. PAST SURGICAL HISTORY: Cholecystectomy. Left knee surgery described above. ALLERGIES: THE PATIENT IS ALLERGIC TO VANCOMYCIN. MEDICATIONS: Cefazolin. FAMILY HISTORY: Noncontributory. SOCIAL HISTORY: She is and lives locally in [place]. She is quite active at baseline. She does not smoke. PHYSICAL EXAMINATION: VITAL SIGNS: She is afebrile with stable vital signs on room air. GENERAL: In general, she is a pleasant middle-aged female sitting up in bed looking stable. HEENT: Sclerae anicteric. Mouth is clear. NECK: Supple. LUNGS: Clear to auscultation bilaterally. HEART: Regular rate and rhythm. ABDOMEN: Soft, nontender, and nondistended. EXTREMITIES: The left knee is currently wrapped with a drain in place. LABORATORY DATA: Her white blood cell count is 4800, hemoglobin 11.3, platelets 191,000, creatinine is 0.85. She was found to have abnormal thyroid function tests with an elevated TSH and a low T4 suggesting hypothyroidism. Culture from the knee grew a few colonies of Acinetobacter baumannii. She also had some light growth of Staphylococcus epidermidis and bacillus. IMPRESSION: Possible superficial infection involving the left knee with development of hematoma that required evacuation. She recently had lysis of adhesions at [facility] within the past month. Original surgery was in late June and involved partial patellectomy and repair of extensor mechanism. I do not think 2 of the organisms are significant as they represent skin chata, but I am a little bit more concerned about the finding of Acinetobacter as that organism would not be expected. It may be reasonable to give her a short course of treatment to ensure that the affected area heals well. PLAN: She will be changed from cefazolin over to levofloxacin. I suspect this organism will be susceptible to levofloxacin and I have left a message to the microbiology lab to get that verified. Dr. Conklin is supposed to be coming by to look at the knee again and take down her surgical dressing. Hopefully, her drain can be removed and she may be able to go home soon. She should not need any more than 2 weeks of antibiotic treatment. Thank you for allowing me to participate in the patient's care. Geovany Alonso MD TID: [id number] RECEIPT: [id number] VIKTOR/WAQAS
[2024-12-13 05:41] LABS: MEAN PLATELET VOLUME 8.9 FL (7.4-10.4); RED CELL DISTRIBUTION WIDTH 14.5 % (11.5-14.5)
[2024-12-13 06:00] VITALS: BP 136/75; PULSE 51; RESP 14; TEMP 97.6; O2SAT 98
[2024-12-13 06:09] LABS: CREATININE 0.71 MG/DL (0.40-0.90); TOTAL CARBON DIOXIDE 28.3 MMOL/L (24-32); eCRCL 76 ML/MIN; eGFR 82 ML/MIN
[2024-12-13 08:07] VITALS: RESP 14; O2SAT 98
[2024-12-13 10:00] VITALS: BP 124/70; PULSE 56; RESP 16; TEMP 98; O2SAT 99
--- NOTE | 2024-12-13 12:10 | PROGRESS NOTE- Residence ---
Progress Note - Resident Providers to CC Resident Creating Document: JOVANNA BO RES ~ Antibiotic Timeout Antibiotic Ordered?: Yes Subjective Patient was seen and examined at bedside, no acute overnight symptoms. Dr. Conklin to evaluate the patient remove the drain today. She claims she has a an appointment in December with Dr. Galarza. She would like to follow up with him regarding further management of her overt hypothyroidism. Objective Vital Signs Date Time Temp Pulse Resp B/P (MAP) Pulse Ox O2 Delivery O2 Flow Rate FiO2 12/13/24 08:07 14 98 Room Air 12/13/24 05:24 0.0 96 12/12/24 22:00 97.6 56 99/57 (71) Result Diagram: 12/13/24 0457 12/13/24 0457 General: Well alert, well oriented, not confused, not agitated, not in acute distress, well cooperated during the physical. HEENT: Conjunctive are pink, sclerae clear, no icterus, pupil is equal in both sides, reactive to light, no ear discharge, no pharyngeal erythema or an edema, mouth and lips are moist. Neck: Supple, no JVD, no lymphadenopathy and thyromegaly. Lungs:Equal air entry on both lungs, no additional sounds Heart: S1-S2 regular sinus rhythm and, regular rate, no gallops, no rubs, no murmurs Abdomen: No visible peristalsis, Bowel sounds present on auscultation, soft, nontender, no guarding, no rigidity Extremities: the left knee was secured well with the bandage and stabilized wear with the negative pressure vacum wound dressing. No obvious deformities, no pitting edema bilaterally, capillary refill intact, able to wiggle toes both sides, peripheral pulsations are intact on both sides, no motor weakness COMPOSITE BOAT BUILDER: No focal neurological deficits, no motor and sensory weakness in all 4 extremities, could move all 4 extremities Musculoskeletal: No joint swelling, deformities, inflammations, and no scoliosis and back tenderness Skin: No active skin lesions and rashes Coagulation Studies Laboratory Tests Test 12/10/24 11:59 Prothrombin Time 10.3 SECONDS (9.0-12.0) INR International Normalized Ratio 1.0 INR Activated Partial Thromboplast Time 25 SECONDS (22-32) Coagulation Comments Advance Care Planning Advanced Care plannin - 30 Minutes Assessment Assessment A 64 years old previously healthy female with past medical history of rosacea, s/p cholecystectomy, s/p left patellar fracture s/p post surgery adhesiolysis surgery who recently underwent evacuation of hematoma surgery by Dr Conklin on 12/10/24 was requested for the medical consultation during hospitalization. Patient usually goes to Dr Plascencia for her PCP care. Plan Plan S/P Evacuation of Postoperative Left Knee Hematoma and Wound Dehiscence Repair with Wound VAC Placement History of left knee patellar fracture (previously surgically repaired). History of left knee adhesiolysis surgery Wound cultures positive for Acinetobacter baumannii, bacillus species We will continue to follow the patient for medical management in coordination with the orthopedic surgery team Antibiotics: Dr. Alonso was consulted today, recommended levofloxacin 500 mg p.o. daily Preliminary wound culture: Wound cultures positive for Acinetobacter baumannii and bacillus species Labs: WBC, ESR, and procalcitonin currently within normal limits. Pain control: Continue [place] as prescribed, PRN. Wound care: Wound care consultation obtained and appreciated. Continue wound VAC management as per recommendations PT: To start only after orthopedic clearance (per Dr. Conklin) 12/13/2024: Dr. Conklin to evaluate and remove drain today. Dr. Alonso ID, recommended to continue Levaquin 500 mg p.o. daily for 2 weeks Dimorphic/Hyperchromic Normocytic Anemia Monitor CBC daily; hemoglobin slightly trending down. Likely secondary to perioperative/estimated blood loss. Monitor surgical site for active bleeding. Coagulation profile normal Apparent Hypocalcemia / Mild Protein-Energy Malnutrition Corrected calcium within normal range; low total calcium likely due to low serum protein. Urinalysis negative for protein. Continue Albert and encourage high-protein diet. Hypercholesterolemia LDL 134 mg/dL. Patient declined statin therapy after discussion of risks and benefits Will continue with heart-healthy diet and lifestyle modification Overt Hypothyroidism (Rinku Thyroiditis) Known history of Rinku thyroiditis. Off thyroid medication ([place] Thyroid) for 2 years. Current labs: TSH >10, Free T4 <0.3 consistent with overt hypothyroidism. Levothyroxine 75 mcg daily was prescribed, but patient refused after counseling Discussed risks of untreated hypothyroidism, including hyperlipidemia, bradycardia, depression, and increased cardiovascular/cerebrovascular risk Advised close follow-up with PCP and Varitypist; repeat TSH and Free T4 in 6 weeks Code Status: Full Code DVT Prophylaxis: SCDs per orthopedic team until fully ambulatory Analgesia: [place] PRN GI Prophylaxis: None Lines/Tubes: Peripheral IV Nutrition: Regular diet, protein-enriched Prognosis: Guarded Jovanna Bo MD Internal Medicine Resident, PGY-2 Date of Service: Dec 13, 2024 Billing Provider: BERTA SPANN MD,JOVANNA, RES Dec 13, 2024 12:09
[2024-12-13] MEDS ORDERED: MULT9LIQ7 PO (14:47)
[2024-12-13] MEDS ORDERED: LEVO-65 PO ×2 (14:47→15:47)
[2024-12-13] MEDS ORDERED: LEVO75TA7 PO (14:47)
[2024-12-13] MEDS ORDERED: LACT1CAP26 PO (15:21)
--- NOTE | 2024-12-13 15:43 | DISCHARGE SUMMARY-Residence ---
Discharge Summary Providers to CC Resident Creating Document: JOVANNA BO, RES ~ Discharge Summary Admission Diagnosis: Hematoma left knee status post extensive lysis of the adhesions Hospital Course DATE OF ADMISSION: 12/10/24 DATE OF DISCHARGE: 12/13/2024 Discharge Diagnosis\Comment: S/P Evacuation of Postoperative Left Knee Hematoma and Wound Dehiscence Repair with Wound VAC Placement History of left knee patellar fracture (previously surgically repaired). History of left knee adhesiolysis surgery Wound cultures positive for Acinetobacter baumannii, bacillus species Dimorphic/Hyperchromic Normocytic Anemia Apparent Hypocalcemia / Mild Protein-Energy Malnutrition Hypercholesterolemia Overt Hypothyroidism (Rinku Thyroiditis) Operations\Procedures: S/P Evacuation of Postoperative Left Knee Hematoma and Wound Dehiscence Repair with Wound VAC Placement Consultants: Orthopedics: Dr. Conklin Complications: None Condition on DC: Stable New Medications: Lactobacillus Rhamnosus (Culturelle) 10 Billion Cell Capsule 1 CAP PO DAILY for 30 Days, #30 CAP 0 Refills Levofloxacin (Levofloxacin) 500 Mg Tablet 500 MG PO DAILY for 13 Days, #13 TAB Levothyroxine Sodium (Levothyroxine Sodium) 75 Mcg Tablet 75 MCG PO DAILY@07 for 30 Days, #30 TAB Multivits W-Min/Ferrous Gluc (Centrum Multivit-Mineral Liq) 9 Mg Iron/15 Ml Liquid 15 ML PO DAILY for 30 Days, #30 ML Discontinued Medications: Home Med List (No Home Medications) Each Discharge Summary: HPI as per admitting physician: A 64 years old previously healthy female with past medical history of rosacea, s/p cholecystectomy, s/p left patellar fracture s/p post surgery adhesiolysis surgery who recently underwent evacuation of hematoma surgery by Dr Conklin on 12/10/24 was requested for the medical consultation during hospitalization. Patient usually goes to Dr Plascencia for her PCP care. She described herself as a healthy and active for her age with the healthy lifestyle and diet. She stated that she has had the left patellar fracture on Jun, 2024 which was repaired, and complicated with the adhesions that needed for the adhesiolysis surgery on last November 17, 2024. She has developed the swelling which were bleeding over her left knee since 5-7 days ago, which she attributed for has been doing the extensive knee banding exercises with the machine lately. She denied for any personal and family bleeding dyscrasia hi story. She is not currently taking any blood thinners at that moment. She denied for any pain and inflammation symptoms over her left knee along with the fever with chills and rigors. She underwent the evacuation of hematoma surgery by Dr Conklin today without having any complications. she was put on the IV Cefazolin and Dr Conklin requested for the medical consultation for her wound with the concern of the infectious contamination along with the continuous wound care. Hospital course: The patient, a 64-year-old female with a past medical history of rosacea, cholecystectomy, left patellar fracture, and prior adhesiolysis surgery, was admitted for postoperative management following evacuation of a left knee hematoma and wound dehiscence repair with wound VAC placement on 12/10/[address] Conklin. The patients postoperative course was complicated by wound infection, with cultures positive for Acinetobacter baumannii and Bacillus species. Infectious disease consultation was obtained, and the patient was started on Levofloxacin 500 mg daily for two weeks. Laboratory evaluation including WBC, ESR, and procalcitonin remained within normal limits throughout hospitalization. The patient experienced dimorphic normocytic anemia, likely secondary to perioperative blood loss, and was monitored with daily CBCs. Coagulation parameters were normal. Apparent hypocalcemia was noted but corrected calcium levels were within normal range; nutritional status was addressed with high-protein supplementation and dietary counseling. The patients chronic conditions were also addressed during hospitalization. She has overt hypothyroidism (TSH >10, Free T4 <0.3) secondary to Rinku thyroiditis but declined thyroid replacement therapy after counseling. She also declined statin therapy for hypercholesterolemia (LDL 134 mg/dL) and was advised on heart-healthy lifestyle modifications. Pain management was maintained with Inglis PRN, and physical therapy was deferred pending orthopedic clearance. On 12/13/2024, Dr. Conklin evaluated the patient, removed the wound drain, changed the dressing, and recommended discharge with outpatient follow-up in his office. After nursing assessment, the patient was noted to have a walker at home and was able to safely transition to the restroom independently. She remained medically stable and was safe for discharge with ongoing wound care, outpatient follow with Dr. Conklin, and close monitoring of her thyroid function and nutritional status. Physical examination today: General: Well alert, well oriented, not confused, not agitated, not in acute distress, well cooperated during the physical. HEENT: Conjunctive are pink, sclerae clear, no icterus, pupil is equal in both sides, reactive to light, no ear discharge, no pharyngeal erythema or an edema, mouth and lips are moist. Neck: Supple, no JVD, no lymphadenopathy and thyromegaly. Lungs:Equal air entry on both lungs, no additional sounds Heart: S1-S2 regular sinus rhythm and, regular rate, no gallops, no rubs, no murmurs Abdomen: No visible peristalsis, Bowel sounds present on auscultation, soft, nontender, no guarding, no rigidity Extremities: the left knee was secured well with the bandage and stabilized wear with the negative pressure vacum wound dressing. No obvious deformities, no pitting edema bilaterally, capillary refill intact, able to wiggle toes both sides, peripheral pulsations are intact on both sides, no motor weakness RESCUE WORKER: No focal neurological deficits, no motor and sensory weakness in all 4 extremities, could move all 4 extremities Musculoskeletal: No joint swelling, deformities, inflammations, and no scoliosis and back tenderness Skin: No active skin lesions and rashes Laboratory Tests Test 12/12/24 05:40 12/12/24 13:03 12/13/24 04:57 White Blood Count 4.8 X10'3 4.2 X10'3 Red Blood Count 3.51 X10'6 3.81 X10'6 Hemoglobin 11.3 g/dl 12.1 g/dl Hematocrit 32.9 % 35.6 % Mean Corpuscular Volume 93.8 FL 93.4 FL Mean Corpuscular Hemoglobin 32.2 PG 31.8 PG Mean Corpuscular Hemoglobin Concent 34.3 g/dL 34.1 g/dL Red Cell Distribution Width 14.8 % 14.5 % Platelet Count 191 X10'3 192 X10'3 Mean Platelet Volume 8.9 FL 8.9 FL Neutrophils (%) (Auto) 50.8 % 46.5 % Lymphocytes (%) (Auto) 27.3 % 28.7 % Monocytes (%) (Auto) 10.0 % 9.9 % Eosinophils (%) (Auto) 11.2 % 14.1 % Basophils (%) (Auto) 0.7 % 0.8 % Neutrophils # (Auto) 2.4 X10'3 2.0 X10'3 Lymphocytes # (Auto) 1.3 X10'3 1.2 X10'3 Monocytes # (Auto) 0.5 X10'3 0.4 X10'3 Eosinophils # (Auto) 0.5 X10'3 0.6 X10'3 Basophils # (Auto) 0.0 X10'3 0.0 X10'3 CBC Comment Sodium Level 141 MMOL/L 139 MMOL/L Potassium Level 4.0 MMOL/L 3.8 MMOL/L Chloride Level 108 MMOL/L 107 MMOL/L Carbon Dioxide Level 26.1 MMOL/L 28.3 MMOL/L Anion Gap 7 4 Blood Urea Nitrogen 21 MG/DL 21 MG/DL Creatinine 0.85 MG/DL 0.71 MG/DL Estimated GFR/1.73 m2 67 ML/MIN 82 ML/MIN BUN/Creatinine Ratio 24.7 29.6 Glucose Level 80 MG/DL 82 MG/DL Calcium Level 7.8 MG/DL 8.3 MG/DL Total Bilirubin 0.2 MG/DL 0.2 MG/DL Aspartate Amino Transf (AST/SGOT) 19 U/L 24 U/L Alanine Aminotransferase (ALT/SGPT) 12 U/L 17 U/L Alkaline Phosphatase 93 IU/L 94 IU/L Total Protein 6.0 G/DL 6.2 G/DL Albumin 2.7 G/DL 2.8 G/DL Globulin 3.3 G/DL 3.4 G/DL Albumin/Globulin Ratio 0.8 0.8 Chemistry Comments Glucometer 102 mg/dl Microbiology Wound cultures 12/09/24 Routine Culture - Final, Complete Acinetobacter Baumannii Complx Staphylococcus Epidermidis Bacillus Sp., Not Anthracis 12/09/24 Anaerobic Culture - Final, Complete NO ANAEROBES ISOLATED. Advise on discharge: - continue medications as prescribed - you have been also prescribed levothyroxine 75 mcg p.o. daily, repeat TSH in 6 weeks and follow up with the Dr. Galarza in December - continue levofloxacin 500 mg p.o. daily as prescribed - follow up with Dr. Conklin outpatient- - 12/17 *Problems/Diagnosis: (1) Hypothyroidism Total Time Spent on D/C: > 30 Minutes Date of Service: Dec 13, 2024 Billing Provider: BERTA SPANN MD, GAURAV, RES Dec 13, 2024 15:43
== END 2024-12-13 17:12 | disposition home or self-care (01) | DRG 908 ==
LOC: PAS 07:25 → UNDOADMOB 14:52 → ORTHO 4S 14:52
PROVIDERS: ADMIT Orthopaedic Surgery; ATTEND Orthopaedic Surgery
PROC: 0SCD0ZZ Extirpation of Matter from Left Knee Joint, Open Approach (ICD-10-PCS; principal; 2024-12-09 10:53)
DX: T81.31XA Disruption of external operation (surgical) wound, not elsewhere classified, initial encounter (principal); E44.1 Mild protein-calorie malnutrition; L76.32 Postprocedural hematoma of skin and subcutaneous tissue following other procedure; Z68.23 Body mass index [BMI] 23.0-23.9, adult; E78.00 Pure hypercholesterolemia, unspecified; E83.51 Hypocalcemia; E06.3 Autoimmune thyroiditis; D64.9 Anemia, unspecified; Y83.9 Surgical procedure, unspecified as the cause of abnormal reaction of the patient, or of later complication, without mention of misadventure at the time of the procedure; Y92.89 Other specified places as the place of occurrence of the external cause
CPT/HCPCS: Z7506; Z7508; 36415; 80053; 80061; 81003; 82607; 82948; 83036; 84145; 84439; 84443; 85025; 85610; 85651; 85730; 87070; 87075; 87077; 87081; 87186; A4333; A4615; A4618; A6222; A6223; A6258; A6446; A6449; A7000; A9272; C1758; G0378; J0690; J2405; J2704; J2795; J3010; J3490; J7030; J7120

== ENCOUNTER → 2025-01-27 | Day surgery (SDC) | payer OTHER ==
[~2025-01-27] VITALS: Ht 170.2 cm; Wt 67.6 kg
[2025-01-27] VITALS (11 sets, daily range): BP systolic 117–134; BP diastolic 62–80; PULSE 60–77; RESP 12–17; TEMP 97.7; O2SAT 93–99
[~2025-01-27] MED LIST changes: -BUPIVAcaine/PF 2.5mg/ml (0.25%) 10ml vial ONE; +DOXY-224 PO; +HYDROmorphone/PF 0.2 MG/ML SYRINGE IV PRN; +LIDOcaine 1% (10mg/ml)w/preservative inj. 20ml MDV ONE; -NO HOME MEDS; +ROPIVAcaine 0.5% (5mg/ml) 30ml vial ONE; +acetaminophen 1,000mg/100ml IV 100 ML IV ONE; -bacitracin 15gm ointment TP ONE; +dexamethasone sod phosphate 4mg/ml inj. ONE; +enalaprilat 1.25mg/ml 2ml vial IV PRN; +fentaNYL/PF 50MCG/1 ML 2ML syringe IV PRN; +fentaNYL/PF 50MCG/1 ML 2ML syringe ONE; +ketorolac trometh 30MG/ML vial 30 MG/ML VIAL ONE; +labetalol 20mg/4ml (5mg/ml) syringe IV PRN; +morphine 4 MG/ML inj SYRINge IV PRN; +ondansetron/PF 4mg/2ml inj IV PRN; +ondansetron/PF 4mg/2ml inj ONE; +propofol inj 20 ML IV ONE; +ringers solution, lacted 1,000 ML IV SCH; +triamcinolone acetonide 40mg/ml inj ONE
[2025-01-27] MEDS: tranexamic acid 1gm/0.7% sal. 100 ML IV ONE (06:35)
[2025-01-27] MEDS: ringers solution, lacted 1,000 ML IV SCH (06:35)
--- NOTE | 2025-01-27 09:40 | OPERATIVE REPORT ---
DATE OF SURGERY: 01/27/2025 DICTATING PHYSICIAN: Piter Conklin MD PREOPERATIVE DIAGNOSIS: Arthrofibrosis, left knee. POSTOPERATIVE DIAGNOSIS: Arthrofibrosis, left knee. PROCEDURES PERFORMED: * Manipulation under anesthesia * Intraarticular steroid injection of the left knee SURGEON: Piter Conklin MD. CHILDREN'S TUTOR NURSERY: No digital marketing assistant. ANESTHESIA: General anesthesia. ANESTHESIOLOGIST: Dr. South with an adductor canal block. FINDINGS: The patient was found to have severe arthrofibrosis, only allowing 0 to 40 degrees range of motion. COMPLICATIONS: There were no complications. IMPLANTS USED: No implants were used. BLOOD LOSS: 0 mL. INCISION: There was no incision. SPECIMENS: No specimen was removed. DESCRIPTION OF PROCEDURE: The patient was taken to the operating room and given a general anesthetic. She is on oral antibiotics and no prophylactic antibiotics were felt indicated. The patient refused any additional prophylactic antibiotics. Informed consents were obtained. I had signed her left extremity leg and she was taken to the operating room and given some IV sedation and an LMA anesthetic as well as an adductor canal block by Dr. South. After an adequate plan of anesthesia was achieved and there was good muscle relaxation, the knee was taken through a range of motion and found to have only 0-45 degrees of flexion, full extension, and a stable knee otherwise. I did a slow type of gentle manipulation to try to achieve improved range of motion. Over the course of approximately 45 minutes, slow release of adhesions were accomplished with major effort, but I was able to get 110 degrees of knee flexion with pressure. Without pressure, I was able to get 95-100 degrees of passive knee flexion. The knee was stable throughout this range of motion and the patella tracked centrally. There was no disruption of her anterior knee incision. Pictures were taken and then the patient was prepped for an intraarticular injection, which was done by me with an 18-gauge needle, 9 mL of lidocaine, and 1 mL of Kenalog 40 mg. I was able to do the intraarticular injection from the lateral patellofemoral portal, aspirating some blood tinged synovial fluid. Once the injection was completed, a bandage was applied. The knee was taken through additional ranges of motion to achieve adequate distribution of the intraarticular injection and the case was completed. The patient was now aroused. LMA was removed. The patient had never left the [facility] as manipulation was done in the [facility]. The patient was then transferred to the recovery room in stable condition. No apparent perioperative complications. Piter Conklin MD TID: [id number] RECEIPT: [id number] CLAU/XENIA
[2025-01-27] MEDS: fentaNYL/PF 50MCG/1 ML 2ML syringe IV PRN (10:13)
[2025-01-27] MEDS: HYDROcodone/acetaminophen 10/325mg tab PO ONE (11:04)
== END | disposition home or self-care (01) ==
LOC: PAS 06:10
PROVIDERS: ATTEND Orthopaedic Surgery
DX: M24.662 Ankylosis, left knee (principal); E03.9 Hypothyroidism, unspecified; R73.09 Other abnormal glucose; Z88.1 Allergy status to other antibiotic agents; Z90.49 Acquired absence of other specified parts of digestive tract; Z98.890 Other specified postprocedural states
CPT/HCPCS: 20610; 27570; 82948; A6258; J0131; J1100; J1885; J2405; J2704; J2795; J3010; J3301; J3490; J7120; Z7506; Z7508; Z7512; A4215; A4618